=== PATIENT | male | born 1940 | race Caucasian/White ===

== ENCOUNTER 2017-09-13 08:56 | Emergency (ER) | payer SELFPAY ==
--- NOTE | 2017-09-13 09:41 | RAD ---
PROCEDURE: CHEST RADIOGRAPH, 1 VIEW HISTORY: r/o infiltrate COMPARISON: 09/27/2015. FINDINGS: LUNGS: The lungs are clear. PLEURA: No pneumothorax or pleural fluid seen. CARDIOVASCULAR: Normal. OSSEOUS STRUCTURES: No significant abnormalities. VISUALIZED UPPER ABDOMEN: Normal. OTHER FINDINGS: None. IMPRESSION: No active pulmonary disease.
[2017-09-13 10:03] LABS: BASO # 0.1 K/uL (0.0-0.2); BASO % 0.4 % (0.0-2.0); EOS # 0.2 K/uL (0.0-0.7); EOS % 1.5 % (0.0-4.0); LYMPH # 1.7 K/uL (1.0-4.3); LYMPH % 13.5 % (20.0-40.0); MEAN CELL VOLUME 86.3 fL (80.0-94.0); MEAN CORPUSCULAR HEMOGLOBIN 28.3 pg (27.0-31.0); MEAN CORPUSCULAR HGB CONC 32.8 g/dL (33.0-37.0); MEAN PLATELET VOLUME 9.1 fL (7.2-11.7); MONO # 0.7 K/uL (0.0-0.8); MONO % 5.8 % (0.0-10.0); RED CELL DISTRIBUTION WIDTH 12.9 % (11.5-14.5); WHITE BLOOD COUNT 12.5 K/uL (4.8-10.8)
[2017-09-13 10:16] LABS: BILIRUBIN,TOTAL 0.8 mg/dL (0.2-1.3); GFR AFRICAN-AMERICAN > 60; GLUCOSE,RANDOM 284 mg/dL (75-110); TOTAL PROTEIN 9.3 g/dL (6.3-8.3)
[2017-09-13 10:19] LABS: ALB/GLOB RATIO 0.8 (1.0-2.1); ALKALINE PHOSPHATASE 81 U/L (38-126); ALT/SGPT 50 U/L (21-72); AST/SGOT 35 U/L (17-59); BLOOD UREA NITROGEN 20 mg/dL (9-20); CARBON DIOXIDE 28 mmol/L (22-30); CHLORIDE 98 mmol/L (98-107); POTASSIUM 5.7 mmol/L (3.6-5.2); SODIUM 132 mmol/L (132-148)
[2017-09-13] MEDS ORDERED: Lactated Ringer's 1,000 ML IV STA (10:33)
--- NOTE | 2017-09-13 10:44 | CT ---
PROCEDURE: CT HEAD WITHOUT CONTRAST. HISTORY: r/o ICH COMPARISON: None available. TECHNIQUE: Axial computed tomography images were obtained through the head/brain without intravenous contrast. Radiation dose: Total exam DLP = 968.66 mGy-cm. This CT exam was performed using one or more of the following dose reduction techniques: Automated exposure control, adjustment of the mA and/or kV according to patient size, and/or use of iterative reconstruction technique. FINDINGS: HEMORRHAGE: No intracranial hemorrhage. BRAIN: There is no mass, mass effect or abnormal extra-axial fluid collection. There is no territorial infarction. VENTRICLES: There is moderate age-related global parenchymal volume loss and proportionate enlargement of the ventricles and cortical sulci. CALVARIUM: There is no calvarial fracture or extracranial soft tissue swelling. PARANASAL SINUSES: There is scattered mucosal thickening in the ethmoid air cells the remaining included paranasal sinuses are clear. MASTOID AIR CELLS: The right mastoid air cells are underdeveloped. The left mastoid air cells are clear. OTHER FINDINGS: None. IMPRESSION: No acute intracranial abnormality. Moderate age-related global parenchymal volume loss.
[2017-09-13 12:39] VITALS: BP 145/63; PULSE 60; RESP 16; TEMP 98.1; O2SAT 97
[2017-09-13 12:41] LABS: RBC URINE 1 /hpf (0-3); URINE BACTERIA MANY (<OCC); URINE BILIRUBIN NEGATIVE (NEGATIVE); URINE BLOOD NEGATIVE (NEGATIVE); URINE COLOR Yellow (YELLOW); URINE GLUCOSE (UA) 3+ mg/dL (Normal); URINE KETONE NEGATIVE (NEGATIVE); URINE LEUKOCYTE ESTERASE NEG Leu/uL (Negative); URINE PROTEIN 2+ mg/dL (NEGATIVE); URINE UROBILINOGEN NORMAL mg/dL (0.2-1.0); WBC URINE 4 /hpf (0-5)
--- NOTE | 2017-09-13 14:32 | C.PDOC ---
History Of Present Illness 77 y/o male presents c/o mild headache, and mild dizziness for the past several days. Denies trauma, chest pain, shortness of breath, fever, or recent travel. No PMD Chief Complaint (Nursing): Dizziness/Lightheaded History Per: Patient History/Exam Limitations: no limitations Past Medical History Reviewed: Historical Data, Nursing Documentation, Vital Signs Vital Signs: Last Vital Signs Temp 98.1 F 09/13/17 12:30 Pulse 60 09/13/17 12:30 Resp 16 09/13/17 12:30 BP 145/63 09/13/17 12:30 Pulse Ox 97 09/13/17 14:34 - Medical History PMH: HTN Family History: States: Unknown Family Hx - Social History Hx Alcohol Use: No Hx Substance Use: No - Immunization History Hx Tetanus Toxoid Vaccination: No Hx Influenza Vaccination: No Hx Pneumococcal Vaccination: No Review Of Systems Except As Marked, All Systems Reviewed And Found Negative. Constitutional: Negative for: Fever, Chills Cardiovascular: Negative for: Chest Pain, Palpitations Respiratory: Negative for: Cough, Shortness of Breath Gastrointestinal: Negative for: Nausea, Vomiting Neurological: Positive for: Headache, Dizziness. Negative for: Weakness, Numbness Physical Exam - Physical Exam Appears: Non-toxic, No Acute Distress Skin: Normal Color, Warm, Dry Head: Atraumatic, Normacephalic Eye(s): bilateral: Normal Inspection Oral Mucosa: Dry (mild) Neck: Normal ROM, Supple Chest: Symmetrical Cardiovascular: Rhythm Regular, No Murmur Respiratory: Normal Breath Sounds, No Rales, No Rhonchi, No Wheezing Gastrointestinal/Abdominal: Soft, No Tenderness Extremity: Normal ROM Neurological/Psych: Oriented x3, Normal Speech, Normal Cognition ED Course And Treatment - Laboratory Results Result Diagrams: 09/13/17 10:08 09/13/17 09:57 ECG: Interpreted By Me, Viewed By Me ECG Rhythm: Sinus Rhythm ECG Interpretation: No Acute Changes Interpretation Of ECG: Normal axis, normal intervals. Rate From EC O2 Sat by Pulse Oximetry: 97 Pulse Ox Interpretation: Normal Progress Note: Blood work, CXR, EKG, head CT ordered and reviewed. Pt was given Tylenol, and Antivert. On re-eval, pt reports feeling better and is being discharged home. Disposition - Disposition Referrals: [facility] [Outside] [facility] [Outside] Disposition: HOME/ ROUTINE Disposition Time: 11:30 Condition: IMPROVED Additional Instructions: Thank you for letting us take care of you today. The emergency medical care you received today was directed at your acute symptoms. If you were prescribed any medication, please fill it and take as directed. It may take several days for your symptoms to resolve. Return to the Emergency Department if your symptoms worsen, do not improve, or if you have any other problems. Please contact your doctor or call one of the physicians/clinics you have been referred to that are listed on the Patient Visit Information form that is included in your discharge packet. Bring any paperwork you were given at discharge with you along with any medications you are taking to your follow up visit. Our treatment cannot replace ongoing medical care by a primary care provider (PCP) outside of the emergency department. Thank you for allowing the [facility] team to be part of your care today. Follow up with the clinic in 2-3 days for re-evaluation and further management. Instructions: Acute Headache (ED), Dizziness (ED) Forms: [employer] (Andorran) - Clinical Impression Clinical Impression: Dizziness - Scribe Statement The provider has reviewed the documentation as recorded by the Scribe Chely angulo All medical record entries made by the Hallieiboh were at my direction and personally dictated by me. I have reviewed the chart and agree that the record accurately reflects my personal performance of the history, physical exam, medical decision making, and the department course for this patient. I have also personally directed, reviewed, and agree with the discharge instructions and disposition.
--- NOTE | 2017-09-16 22:27 | CARD ---
APPROVED REPORT EKG Measurement Heart [id number] <Conclusion> Normal sinus rhythm ST & T wave abnormality, consider lateral ischemia Abnormal ECG
== END 2017-09-13 13:19 | disposition home or self-care (01) ==
LOC: C.ER 08:56
DX: R42 Dizziness and giddiness (principal)
CPT/HCPCS: 70450; 71010; 80053; 81001; 82948; 84484; 85025; 87086; 87181; 87804; 93005; 99285; J7120

== ENCOUNTER 2018-10-14 14:33 | Emergency (ER) | payer OTHER ==
[2018-10-14 14:50] VITALS: TEMP 97.9; O2SAT 100
--- NOTE | 2018-10-14 17:06 | C.PDOC ---
History Of Present Illness 78 y/o male, with PMHx of diabetes and hypertension, comes in complaining of a 1 week history of itching and burning all over his entire body to the point he has difficulty sleeping. Patient doesnt identify any rash except for his left side of abdomen which he states is painful. Patient denies any new use of soaps, lotions, or clothes. Patient denies any alcohol or tobacco use. Chief Complaint (Nursing): Cough, Cold, Congestion History Per: Patient History/Exam Limitations: no limitations Onset/Duration Of Symptoms: Days Current Symptoms Are (Timing): Still Present Past Medical History Reviewed: Historical Data, Nursing Documentation, Vital Signs Vital Signs: Last Vital Signs Temp 97.9 F 10/14/18 14:47 Pulse 60 10/14/18 14:47 Resp 20 10/14/18 14:47 BP 126/80 10/14/18 14:47 Pulse Ox 100 10/14/18 14:47 - Medical History PMH: HTN Family History: States: No Known Family Hx - Social History Hx Alcohol Use: No Hx Substance Use: No - Immunization History Hx Tetanus Toxoid Vaccination: No Hx Influenza Vaccination: No Hx Pneumococcal Vaccination: No Review Of Systems Constitutional: Positive for: Other (itching and burning all over body). Negative for: Fever, Chills Eyes: Negative for: Redness Cardiovascular: Negative for: Chest Pain Respiratory: Negative for: Cough, Shortness of Breath Gastrointestinal: Negative for: Nausea, Vomiting, Diarrhea Genitourinary: Negative for: Dysuria Skin: Positive for: Rash (in left side of abdomen) Neurological: Negative for: Weakness, Numbness, Dizziness Physical Exam - Physical Exam Appears: Non-toxic, No Acute Distress Skin: Dry, Other (hyperpigmentation of left side of abdomen; no papules, vesicles, or clusters; excoriated skin; horizontal abrasion of scratches on L side abdomen, right anterior thighs, bilateral hips, right upper arms, and back) Head: Atraumatic, Normacephalic Eye(s): bilateral: Normal Inspection (no scleral icterus) Ear(s): Bilateral: Normal Oral Mucosa: Moist Throat: Normal, No Erythema, No Exudate, Other (uvula midline) Neck: Supple Chest: Symmetrical Cardiovascular: Rhythm Regular, No Murmur Respiratory: Normal Breath Sounds, No Rales, No Rhonchi, No Wheezing Gastrointestinal/Abdominal: Soft, No Tenderness Extremity: Bilateral: Normal ROM Neurological/Psych: Oriented x3, Normal Speech ED Course And Treatment O2 Sat by Pulse Oximetry: 100 (RA) Pulse Ox Interpretation: Normal Disposition Counseled Patient/Family Regarding: Diagnosis, Need For Followup, Rx Given - Disposition Referrals: Uriel Dick MD [Non-Staff] - Lawrence Zelaya DO [Doctor Osteopathy] - Efrem Grimaldo MD [Medical Doctor] - Disposition: HOME/ ROUTINE Disposition Time: 17:00 Condition: STABLE Prescriptions: Cetirizine HCl 10 mg PO DAILY #30 tab Hydrocortisone 3 ml TP BID #1 bottle Instructions: Eczema (Atopic Dermatitis) (DC) Forms: [employer] (Mongolian), General Discharge Instructions - Clinical Impression Clinical Impression: Dermatitis - PA / PACU NURSE / Resident Statement / has reviewed & agrees with the documentation as recorded. - Scribe Statement The provider has reviewed the documentation as recorded by the Scribe Chandrika Celaya All medical record entries made by the Scribe were at my direction and personally dictated by me. I have reviewed the chart and agree that the record a ccurately reflects my personal performance of the history, physical exam, medical decision making, and the department course for this patient. I have also personally directed, reviewed, and agree with the discharge instructions and disposition.
[2018-10-14 17:44] VITALS: BP 124/79; PULSE 62; RESP 18
== END 2018-10-14 17:44 | disposition home or self-care (01) ==
LOC: C.ER 14:33
DX: L30.9 Dermatitis, unspecified (principal)